=== PATIENT | male | born 1970 | race Caucasian/White ===

== ENCOUNTER 2022-09-17 00:21 | Inpatient (IN) ==
[2022-09-17] MEDS ORDERED: GLUCAGON,HUMAN RECOMBINANT 1 MG VIAL IV ONE ×5 (00:29→05:26)
[2022-09-17 00:48] LABS: POC Calcium, Ionized 1.01 (1.16-1.32); POC Creatinine 3.7 (0.6-1.2); POC Potassium 3.4 (3.3-5.1)
[2022-09-17] MEDS ORDERED: ONDANSETRON 4 MG/2 ML VIAL IV ONE (00:49)
[2022-09-17] MEDS ORDERED: 0.9 % SODIUM CHLORIDE 1,000 ML IV ONE ×3 (00:49→03:43)
--- NOTE | 2022-09-17 00:54 | Emergency Department Note ---
Weakness HPI General Chief complaint: Weakness Stated complaint: leg numbness, not feeling well x 1 month Time Seen by Provider: 09/17/22 00:22 Source: patient and EMS Mode of arrival: EMS Limitations: no limitations History of Present Illness HPI Narrative: Narrative: Patient presents to the ED via EMS with complaints of weakness going on for over a month. States he feels rundown. His head chills, body aches, extremity weakness. He does have peripheral neuropathy and diabetes. EMS states that his blood sugar was 50 in the field. He does use insulin. Patient reports nausea, vomiting and diarrhea. States his diarrhea is loose. He states he has been on antibiotics for months for pneumonia. Denies hematemesis, melena, medic easier, dysuria, hematuria urinary frequency, cardiac chest pain, shortness of breath. Patient denies any other alleviating or aggravating factors. Related Data Home Medications Medication Instructions Recorded Confirmed omeprazole 20 mg capsule,delayed 40 mg PO ACB 02/19/16 09/17/22 release glipizide 10 mg tablet, extended 10 mg PO BID 08/20/18 09/17/22 release 24 hr metoprolol succinate 50 mg 50 mg PO DAILY 08/20/18 09/17/22 tablet,extended release 24 hr furosemide 40 mg tablet (Lasix) 40 mg PO QAM 03/14/19 09/17/22 hydrocodone 7.5 mg-acetaminophen 1 tab PO TID PRN Pain 03/14/19 01/18/22 325 mg tablet lisinopril 10 mg tablet 20 mg PO QDAY 03/14/19 01/18/22 duloxetine 60 mg capsule,delayed 120 mg PO DAILY 07/04/20 09/17/22 release insulin degludec 100 unit/mL 40 unit subcut QPM 07/28/20 01/18/22 subcutaneous solution (Tresiba U-100 Insulin) insulin human U-100 NPH-regulr 10 unit subcut TID 07/28/20 01/18/22 70-30 mix 100 unit/mL subcutaneous susp (Humulin 70/30 U-100 Insulin) Ozempic 50 mg WEEKLY 01/18/22 09/17/22 allopurinol 100 mg tablet 100 mg PO DAILY 01/18/22 09/17/22 insulin degludec 100 unit/mL 1 unit subcut DAILY 01/18/22 01/18/22 subcutaneous solution (Tresiba U-100 Insulin) ondansetron HCl 4 mg tablet 4 mg PO Q6H PRN nausea and vomiting 09/17/22 09/17/22 Previous Rx's Medication Instructions Recorded probenecid 500 mg tablet 500 mg PO BID #60 tabs 04/05/16 azithromycin 250 mg tablet See Rx Instructions PO .COMPLEX #6 08/30/22 tabs Allergies Allergy/AdvReac Type Severity Reaction Status Date / Time cephalexin [From Keflex] Allergy Intermediate Hives Verified 09/17/22 00:27 gabapentin Allergy Unknown UNKNOWN Verified 09/17/22 00:27 Penicillins Allergy Anaphylaxis Verified 09/17/22 00:27 pregabalin [From Lyrica] Allergy Rash Verified 09/17/22 00:27 Sulfa (Sulfonamide Allergy Rash Verified 09/17/22 00:27 Antibiotics) Review of Systems ROS ROS Narrative: Narrative: All systems ED: reviewed and negative except as stated. PFSH Narrative Patient History Narrative: Narrative: Medical/Surgical/Family History All Active Problems (Updated 09/17/22 @ 05:21 by Davis Klein DO) Abdominal pain (Acute) Ileus (Acute) COVID-19 virus infection (Acute) Hypoglycemia (Acute) Sepsis (Acute) Diarrhea (Acute) Pneumonia involving left lung (Acute) Type 2 diabetes mellitus with diabetic mononeuropathy (Acute) Radiculopathy of lumbar region (Acute) Chronic intractable pain (Acute) Type 2 diabetes mellitus with peripheral neuropathy (Chronic) Vitamin B12 deficiency (Chronic) Mixed hyperlipidemia (Chronic) Edema (Chronic) Joint pain (Chronic) Hypertensive heart disease with congestive heart failure (Chronic) GERD (gastroesophageal reflux disease) (Chronic) Diastolic heart failure (Chronic) Anemia (Chronic) Obesity (Chronic) Dizziness (Chronic) Hypertension (Chronic) Peripheral neuropathy (Chronic) Diabetes mellitus, type II (Chronic) Syncope (Chronic) SOB (shortness of breath) (Chronic) Palpitation (Chronic) Sleep apnea (Chronic) Chest pain (Chronic) Acute CHF (congestive heart failure) (Chronic) Diabetes mellitus type 2, uncontrolled, with complications (Chronic) Hypertension, essential, benign (Chronic) EMERY (obstructive sleep apnea) (Chronic) Morbid (severe) obesity due to excess calories (Chronic) Cellulitis (Chronic) Pneumonia (Chronic) Elevated rheumatoid factor (Chronic) Elevated C-reactive protein (Chronic) 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) Gout (Chronic) Pain in both knees (Chronic) Elevated erythrocyte sedimentation rate (Chronic) Paresthesia of both feet (Chronic) Hernia (Chronic) Arthritis (Chronic) Bronchitis (Chronic) Medical History Anemia Arthritis Bronchitis Chest pain Chronic intractable pain Diabetes mellitus, type II Diastolic heart failure Dizziness Edema Elevated C-reactive protein Elevated erythrocyte sedimentation rate Elevated rheumatoid factor GERD (gastroesophageal reflux disease) Gout Hernia Hypertension Hypertensive heart disease with congestive heart failure Joint pain shelter current use of therapeutic drug Mixed hyperlipidemia Obesity Palpitation Paresthesia of both feet Peripheral neuropathy Radiculopathy of lumbar region Sleep apnea SOB (shortness of breath) Syncope Type 2 diabetes mellitus with diabetic mononeuropathy Type 2 diabetes mellitus with peripheral neuropathy Vitamin B12 deficiency Surgical History History of adenoidectomy (~2005) History of carpal tunnel release (~2016) right 2017 History of tonsillectomy and adenoidectomy History of tympanostomy (~2005) Hx of appendectomy when he was a child Hx of hernia repair 2002, 2015 Family History Mother , age 68 Arthritis Heart disease CHF (congestive heart failure) Rheumatoid arthritis Blood clotting disorder Lupus Father Diabetes Hypertension Neuropathy Brother Diabetes Social History Smoking Status: Smokeless tobacco Alcohol Intake Frequency: does not drink Substance Use: does not use Exam Narrative Narrative: Narrative: General Limitations: no limitations General appearance: Present obese ENT ENT: Present normal oropharynx and mucous membranes dry Respiratory Respiratory: Present normal lung sounds bilaterally; Absent respiratory distress Cardiovascular Cardiovascular: Present regular rate and normal rhythm Adbominal Abdominal: Present soft; Absent tenderness Back Back: Absent CVA tenderness (R) or CVA tenderness (L) Neurological Neurological: Present alert and oriented X3 Psychiatric Psychiatric: Present normal affect and normal mood Skin Skin: Present warm (WNL) and intact Course Course Course Narrative: Patient was evaluated for generalized weakness. When patient arrived via EMS his blood sugar was still on less than 70. He was given IV glucagon. His lactic acid was found to be elevated and his renal function was compromised to just the dehydration. Patient was aggressively given IV fluid. He had to balance patient's blood sugar with IV fluid. He had several rounds of IV glucagon to maintain blood sugar greater than 71 given him fluids to rehydrate him. Is also hypotensive with also necessitated IV fluids. Unfortunate patient blood pressure did not respond to IV fluids and he was placed on Levophed. Stool sample was obtained and it was negative for C. difficile patient was given some Imodium as he had 5 diarrhea bowel movements while he was here in the ED. He was given IV Zofran for his nausea and vomiting which subsided after administration of Zofran. Patient was hypotensive and tachycardic and his chest x-ray suggested pneumonia so he does meet sepsis criteria. Blood cultures were obtained and patient was given levofloxacin and vancomycin IV. Patient tested positive for COVID-19 and this could be playing a role in his pneumonia as his white cell count is normal. Patient will require hospitalization as he is requiring Levophed to maintain adequate blood pressure and MAP. Unfortunately do not have any beds at our facility so we are currently trying to find an accepting facility. It is proving difficult as it is actively [facility] and we will not be able to fly patient. Patient understand that he will need to be transferred out. Patient will be signed out to Dr. Olivares pending and excepting facility to determine final disposition. Reevaluation(s) Reevaluation #1: Patient reji hemodynamic stable. No new complaints at this time. Time: 01:30 Vital Signs Vital signs: Vital Signs Temperature 98.0 F 09/17/22 00:21 Pulse Rate 78 09/17/22 00:21 Respiratory Rate 28 H 09/17/22 00:21 Blood Pressure 80/55 09/17/22 00:21 Pulse Oximetry (%) 95 09/17/22 00:21 Oxygen Delivery Method 09/17/22 00:21 Temperature 98.0 F 09/17/22 00:21 Pulse Rate 82 09/17/22 06:01 Respiratory Rate 18 09/17/22 06:31 Blood Pressure 106/51 09/17/22 06:31 Pulse Oximetry (%) 100 09/17/22 06:31 Oxygen Delivery Method 09/17/22 01:51 Oxygen Flow Rate (L/min) 2 09/17/22 01:51 MDM MDM Narrative Medical decision making narrative: Narrative: Differential Diagnosis Differential Diagnosis: Hypoglycemia, dehydration, viral illness, UTI, C. difficile Medical Records Medical records reviewed: Yes I reviewed the patient's medical records. Lab Data Lab results reviewed: Yes I reviewed the patient's lab results. Result diagrams: 09/17/22 00:39 Labs: Lab Results 09/17/22 09/17/22 09/17/22 Range/Units 00:29 00:39 00:39 WBC 8.9 (4.5-11.0) K/mcL RBC 3.95 L (4.63-6.08) M/mcL Hgb 11.4 L (13.7-17.5) g/dL Hct 35.3 L (40.1-51.0) % POC Hct (41-55) MCV 89.4 (80.0-100.0) fL MCH 28.9 (26.0-34.0) pg MCHC 32.3 (31.0-36.0) g/dL RDW 16.3 H (11.5-14.5) % Plt Count 344 (140-440) K/mcL MPV 10.0 (8.8-12.5) fL Immature Gran % (Auto) 0.6 H (0.0-0.5) % Neut % (Auto) 50.4 (38.0-78.0) % Lymph % (Auto) 29.7 (15.5-49.0) % [place] % (Auto) 18.6 H (1.0-12.0) % Eos % (Auto) 0.1 (0.0-7.0) % Baso % (Auto) 0.6 (0.0-2.0) % Lymph # (Auto) 2.64 (1.50-4.80) K/mcL [place] # (Auto) 1.65 H (0.10-0.90) K/mcL Eos # (Auto) 0.01 (0.00-0.70) K/mcL Baso # (Auto) 0.05 (0.00-0.30) K/mcL Immature Gran # 0.05 (0.00-0.05) K/mcl Absolute Neutrophils 4.48 (1.80-8.00) K/mcL POC VBG pH (7.32-7.42) POC VBG pCO2 at Temp (41-51) POC VBG pO2 (25-40) POC VBG HCO3 (24-28) POC VBG Total CO2 (25-29) POC Venous O2 Sat (40-70) POC VBG Base Excess (-2-2) VBG Lactic Acid (0.5-2) POC Sodium (133-145) POC Potassium (3.3-5.1) POC Chloride (96-108) POC Total CO2 (22-30) POC BUN (6-20) POC Creatinine (0.6-1.2) POC Glucose (70-105) POC WB Ioniz Calcium (1.16-1.32) Total Bilirubin 0.4 (0.1-1.0) mg/dL Direct Bilirubin 0.2 (<0.3) mg/dL AST 89 H (<40) U/L ALT 38 (<40) U/L Alkaline Phosphatase 150 H (39-117) U/L Ammonia 32 (16-60) umol/L NT-Pro-B Natriuret Pep 1518.0 H (<125.0) pg/mL Total Protein 6.4 (5.9-8.4) gm/dL Albumin 3.1 L (3.2-5.2) gm/dL Globulin 3.3 (2.2-3.7) gm/dL Procalcitonin (<0.10) ng/mL 09/17/22 09/17/22 09/17/22 Range/Units 00:45 01:02 04:00 WBC (4.5-11.0) K/mcL RBC (4.63-6.08) M/mcL Hgb (13.7-17.5) g/dL Hct (40.1-51.0) % POC Hct 36.0 L (41-55) MCV (80.0-100.0) fL MCH (26.0-34.0) pg MCHC (31.0-36.0) g/dL RDW (11.5-14.5) % Plt Count (140-440) K/mcL MPV (8.8-12.5) fL Immature Gran % (Auto) (0.0-0.5) % Neut % (Auto) (38.0-78.0) % Lymph % (Auto) (15.5-49.0) % [place] % (Auto) (1.0-12.0) % Eos % (Auto) (0.0-7.0) % Baso % (Auto) (0.0-2.0) % Lymph # (Auto) (1.50-4.80) K/mcL [place] # (Auto) (0.10-0.90) K/mcL Eos # (Auto) (0.00-0.70) K/mcL Baso # (Auto) (0.00-0.30) K/mcL Immature Gran # (0.00-0.05) K/mcl Absolute Neutrophils (1.80-8.00) K/mcL POC VBG pH 7.34 (7.32-7.42) POC VBG pCO2 at Temp 36.5 L (41-51) POC VBG pO2 72 H (25-40) POC VBG HCO3 19.9 L (24-28) POC VBG Total CO2 21.0 L (25-29) POC Venous O2 Sat 93.0 H (40-70) POC VBG Base Excess -6.0 L (-2-2) VBG Lactic Acid 3.4 H (0.5-2) POC Sodium 131 L (133-145) POC Potassium 3.4 (3.3-5.1) POC Chloride 96 (96-108) POC Total CO2 21.0 L (22-30) POC BUN 41 H (6-20) POC Creatinine 3.7 H (0.6-1.2) POC Glucose 46 L (70-105) POC WB Ioniz Calcium 1.01 L (1.16-1.32) Total Bilirubin (0.1-1.0) mg/dL Direct Bilirubin (<0.3) mg/dL AST (<40) U/L ALT (<40) U/L Alkaline Phosphatase (39-117) U/L Ammonia (16-60) umol/L NT-Pro-B Natriuret Pep (<125.0) pg/mL Total Protein (5.9-8.4) gm/dL Albumin (3.2-5.2) gm/dL Globulin (2.2-3.7) gm/dL Procalcitonin 1.64 H (<0.10) ng/mL 09/17/22 Range/Units 04:05 WBC (4.5-11.0) K/mcL RBC (4.63-6.08) M/mcL Hgb (13.7-17.5) g/dL Hct (40.1-51.0) % POC Hct (41-55) MCV (80.0-100.0) fL MCH (26.0-34.0) pg MCHC (31.0-36.0) g/dL RDW (11.5-14.5) % Plt Count (140-440) K/mcL MPV (8.8-12.5) fL Immature Gran % (Auto) (0.0-0.5) % Neut % (Auto) (38.0-78.0) % Lymph % (Auto) (15.5-49.0) % [place] % (Auto) (1.0-12.0) % Eos % (Auto) (0.0-7.0) % Baso % (Auto) (0.0-2.0) % Lymph # (Auto) (1.50-4.80) K/mcL [place] # (Auto) (0.10-0.90) K/mcL Eos # (Auto) (0.00-0.70) K/mcL Baso # (Auto) (0.00-0.30) K/mcL Immature Gran # (0.00-0.05) K/mcl Absolute Neutrophils (1.80-8.00) K/mcL POC VBG pH 7.28 L (7.32-7.42) POC VBG pCO2 at Temp 44.7 (41-51) POC VBG pO2 32 (25-40) POC VBG HCO3 20.9 L (24-28) POC VBG Total CO2 22.0 L (25-29) POC Venous O2 Sat 54.0 (40-70) POC VBG Base Excess -6.0 L (-2-2) VBG Lactic Acid 2.8 H (0.5-2) POC Sodium (133-145) POC Potassium (3.3-5.1) POC Chloride (96-108) POC Total CO2 (22-30) POC BUN (6-20) POC Creatinine (0.6-1.2) POC Glucose (70-105) POC WB Ioniz Calcium (1.16-1.32) Total Bilirubin (0.1-1.0) mg/dL Direct Bilirubin (<0.3) mg/dL AST (<40) U/L ALT (<40) U/L Alkaline Phosphatase (39-117) U/L Ammonia (16-60) umol/L NT-Pro-B Natriuret Pep (<125.0) pg/mL Total Protein (5.9-8.4) gm/dL Albumin (3.2-5.2) gm/dL Globulin (2.2-3.7) gm/dL Procalcitonin (<0.10) ng/mL ED POC Tests ED POC Tests: MARY - Influenza A Negative MARY - Influenza B Negative MARY - SARS Antigen Positive Core Measures AMI Core Measures Followed: Yes Discharge Plan Patient/Caregiver Discharge Instructions Pt seen by ANIMAL SERVICES OFFICER/PA only: No Clinical Impression: COVID-19 virus infection, Hypoglycemia Sepsis Qualifiers: Sepsis type: sepsis due to unspecified organism Sepsis acute organ dysfunction status: with acute organ dysfunction Severe sepsis acute organ dysfunction type: acute renal failure Acute renal failure type: unspecified Severe sepsis shock status: with septic shock Qualified Code(s): A41.9 - Sepsis, unspecified organism Diarrhea Qualifiers: Diarrhea type: unspecified type Qualified Code(s): R19.7 - Diarrhea, unspecified Pneumonia involving left lung Qualifiers: Pneumonia type: due to unspecified organism Lung location: unspecified part of lung Qualified Code(s): J18.9 - Pneumonia, unspecified organism Patient Disposition: Still a Patient Condition: Fair Follow up with: Mary Cruz ARNP [Primary Care Provider] - Prescriptions: No Action furosemide [Lasix] 40 mg tablet 40 mg PO QAM lisinopril 10 mg tablet 20 mg PO QDAY hydrocodone-acetaminophen 7.5-325 mg tablet 1 tab PO TID PRN (Reason: Pain) probenecid 500 mg tablet 500 mg PO BID Qty: 60 2RF omeprazole 20 MG capsule 40 mg PO ACB metoprolol succinate 50 MG tablet extended release 24 hr 50 mg PO DAILY glipizide 10 MG tablet extended release 24hr 10 mg PO BID duloxetine 60 mg Capsule,Delayed Release(Dr/Ec) 120 mg PO DAILY Humulin 70/30 U-100 Insulin 100 unit/mL (70-30) Suspension 10 unit SUBCUT TID Tresiba U-100 Insulin 100 unit/mL Solution 40 unit SUBCUT QPM allopurinol 100 mg tablet 100 mg PO DAILY Label Comments: TAKE 1 TABLET BY MOUTH ONCE DAILY Ozempic 50 mg WEEKLY Tresiba U-100 Insulin 100 unit/mL Solution 1 unit SUBCUT DAILY azithromycin 250 mg tablet See Rx Instructions .ROUTE .COMPLEX Qty: 6 0RF Rx Instructions: For 250 mg dose pack: take 500 mg today (day 1), then 250 mg for 4 days (days 2-5) ondansetron HCl [Zofran] 4 mg tablet 4 mg PO Q6H PRN (Reason: nausea and vomiting)
[2022-09-17 01:30] LABS: Basophils # (Auto) 0.05 K/mcL (0.00-0.30); Basophils % (Auto) 0.6 % (0.0-2.0); Eosinophils # (Auto) 0.01 K/mcL (0.00-0.70); Eosinophils % (Auto) 0.1 % (0.0-7.0); Hematocrit 35.3 % (40.1-51.0); Hemoglobin 11.4 g/dL (13.7-17.5); Lymphocytes # (Auto) 2.64 K/mcL (1.50-4.80); Lymphocytes % (Auto) 29.7 % (15.5-49.0); Mean Cell Volume 89.4 fL (80.0-100.0); Mean Corpuscular HGB Conc 32.3 g/dL (31.0-36.0); Monocytes # (Auto) 1.65 K/mcL (0.10-0.90); Monocytes % (Auto) 18.6 % (1.0-12.0); Neutrophils % (Auto) 50.4 % (38.0-78.0); Platelet Count 344 K/mcL (140-440); RBC 3.95 M/mcL (4.63-6.08); Red Cell Distribution Width 16.3 % (11.5-14.5); WBC 8.9 K/mcL (4.5-11.0)
[2022-09-17 01:44] LABS: Albumin 3.1 gm/dL (3.2-5.2); Bilirubin,Direct 0.2 mg/dL (<0.3); Bilirubin,Total 0.4 mg/dL (0.1-1.0); Globulin 3.3 gm/dL (2.2-3.7)
[2022-09-17] MEDS ORDERED: LOPERAMIDE 2 MG CAPSULE PO ONE (04:13)
--- NOTE | 2022-09-17 05:06 | XRay Report ---
CLINICAL INFORMATION: Dyspnea COMPARISON: 09/07/2022 TECHNIQUE: Portable FINDINGS: Moderate cardiomegaly is unchanged. Upper lobe pulmonary vessels are mildly distended compared to the previous exam. Mediastinum is normal. Moderate patchy left basilar infiltrate noted. There is a small patchy right basilar infiltrate. Small bilateral pleural effusions appreciated. IMPRESSION: Moderate left and small patchy right basilar infiltrate Mild CHF Interpreted and Authenticated by: James Allen 09/17/22
[2022-09-17] MEDS ORDERED: VANCOMYCIN 1,500 MG in 0.9 % SODIUM CHLORIDE 500 ML IV ONE (05:12)
[2022-09-17] MEDS ORDERED: NOREPINEPHRINE BITARTRATE 16 MG in 0.9 % SODIUM CHLORIDE 234 ML IV SCH (05:15)
[2022-09-17] MEDS ORDERED: 0.9 % SODIUM CHLORIDE 250 ML IV SCH (05:15)
[2022-09-17] MEDS ORDERED: LEVOFLOXACIN 750 MG/150 ML BAG IV ONE (05:21)
[2022-09-17] MEDS ORDERED: GLUCAGON,HUMAN RECOMBINANT 1 MG VIAL ONE (05:37)
[2022-09-17] MEDS ORDERED: DEXTROSE 10 % IN WATER 1,000 ML IV SCH ×2 (07:45→16:00)
[2022-09-17] MEDS ORDERED: ACETAMINOPHEN 325 MG TABLET PO PRN (14:33)
[2022-09-17] MEDS ORDERED: DEXTROSE 31 GM ORAL.SUSP PO PRN (14:33)
[2022-09-17] MEDS ORDERED: DEXTROSE 50% 50 ML VIAL IV PRN (14:33)
[2022-09-17] MEDS ORDERED: SENNOSIDES 1 TABLET PO PRN (14:33)
[2022-09-17] MEDS ORDERED: ONDANSETRON 4 MG/2 ML VIAL IV PRN (14:33)
[2022-09-17] MEDS ORDERED: ALBUMIN HUMAN 25 GM/100 ML BAG IV ONE (14:33)
--- NOTE | 2022-09-17 14:45 | Internal Med History&Physical ---
HPI History of Present Illness Patient information: Note initiated : 09/17/22 at 2:40 pm Patient: Zachary Guerra a 52 y/o M admitted progressive shortness of breath and cough for 2 weeks Chief complaint: Shortness of breath, cough History of present illness: Mr. Guerra is a 52 year old male with past medical history significant for diabetes mellitus, HTN, congestive heart failure unknown EF, morbid obesity with BMI 47 presented to emergency room with complaint of difficulty breathing cough with some sputum which progressively got worse for the past 2 weeks. Patient denies fever chills nausea vomiting. He has uncontrolled diabetes. Sometime he gave himself insulin without checking his blood sugar. Patient also complained of numbness bilateral lower extremity. He has generalized weakness and fatigue. Patient is vaccinated for COVID-19 virus with 2 vaccine. He did not receive his booster. He is vaccinated for influenza. In the emergency room patient found to be in septic shock with hypotension and elevated lactic acid. He was given IV fluid and started on Levophed as well as antibiotic. Patient was also persistently hypoglycemic and has to be started on D10W drip. At the time of my evaluation patient is awake alert oriented x3. He is a still hypotensive and on Levophed drip. His is at the bedside. Patient has shortness of breath and cough. No chest pain. He denies abdominal pain nausea vomiting dysuria or diarrhea. Review of Systems Review of systems: Except as documented all systems reviewed and negative PFSH PFSH All Active Problems Abdominal pain (Acute) Ileus (Acute) COVID-19 virus infection (Acute) Hypoglycemia (Acute) Sepsis (Acute) Diarrhea (Acute) Pneumonia involving left lung (Acute) Type 2 diabetes mellitus with diabetic mononeuropathy (Acute) Radiculopathy of lumbar region (Acute) Chronic intractable pain (Acute) Type 2 diabetes mellitus with peripheral neuropathy (Chronic) Vitamin B12 deficiency (Chronic) Mixed hyperlipidemia (Chronic) Edema (Chronic) Joint pain (Chronic) Hypertensive heart disease with congestive heart failure (Chronic) GERD (gastroesophageal reflux disease) (Chronic) Diastolic heart failure (Chronic) Anemia (Chronic) Obesity (Chronic) Dizziness (Chronic) Hypertension (Chronic) Peripheral neuropathy (Chronic) Diabetes mellitus, type II (Chronic) Syncope (Chronic) SOB (shortness of breath) (Chronic) Palpitation (Chronic) Sleep apnea (Chronic) Chest pain (Chronic) Acute CHF (congestive heart failure) (Chronic) Diabetes mellitus type 2, uncontrolled, with complications (Chronic) Hypertension, essential, benign (Chronic) EMERY (obstructive sleep apnea) (Chronic) Morbid (severe) obesity due to excess calories (Chronic) Cellulitis (Chronic) Pneumonia (Chronic) Elevated rheumatoid factor (Chronic) Elevated C-reactive protein (Chronic) 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) Gout (Chronic) Pain in both knees (Chronic) Elevated erythrocyte sedimentation rate (Chronic) Paresthesia of both feet (Chronic) Hernia (Chronic) Arthritis (Chronic) Bronchitis (Chronic) Medical History Anemia Arthritis Bronchitis Chest pain Chronic intractable pain Diabetes mellitus, type II Diastolic heart failure Dizziness Edema Elevated C-reactive protein Elevated erythrocyte sedimentation rate Elevated rheumatoid factor GERD (gastroesophageal reflux disease) Gout Hernia Hypertension Hypertensive heart disease with congestive heart failure Joint pain 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 Mixed hyperlipidemia Obesity Palpitation Paresthesia of both feet Peripheral neuropathy Radiculopathy of lumbar region Sleep apnea SOB (shortness of breath) Syncope Type 2 diabetes mellitus with diabetic mononeuropathy Type 2 diabetes mellitus with peripheral neuropathy Vitamin B12 deficiency Surgical History History of adenoidectomy (~2005) History of carpal tunnel release (~2017) right 2017 History of tonsillectomy and adenoidectomy History of tympanostomy (~2005) Hx of appendectomy when he was a child Hx of hernia repair 2002, 2015 Family History Mother , age 68 Arthritis Heart disease CHF (congestive heart failure) Rheumatoid arthritis Blood clotting disorder Lupus Father Diabetes Hypertension Neuropathy Brother Diabetes Social History household members: significant other marital status: other details: engaged occupational status: employed and disabled occupational exposures/hazards: No smoking status: Smokeless tobacco alcohol intake frequency: does not drink substance use type: does not use MEDS/ALLERGIES Home Medications and Allergies Home Medications Medication Instructions Recorded Confirmed Type omeprazole 20 mg capsule,delayed 40 mg PO ACB 02/19/16 09/17/22 History release probenecid 500 mg tablet 500 mg PO BID #60 tabs 04/05/16 09/17/22 Rx glipizide 10 mg tablet, extended 10 mg PO BID 08/20/18 09/17/22 History release 24 hr metoprolol succinate 50 mg 50 mg PO DAILY 08/20/18 09/17/22 History tablet,extended release 24 hr furosemide 40 mg tablet (Lasix) 40 mg PO QAM 03/14/19 09/17/22 History hydrocodone 7.5 mg-acetaminophen 1 tab PO TID PRN Pain 03/14/19 01/18/22 History 325 mg tablet lisinopril 10 mg tablet 20 mg PO QDAY 03/14/19 01/18/22 History duloxetine 60 mg capsule,delayed 120 mg PO DAILY 07/04/20 09/17/22 History release insulin degludec 100 unit/mL 40 unit subcut QPM 07/28/20 01/18/22 History subcutaneous solution (Tresiba U-100 Insulin) insulin human U-100 NPH-regulr 10 unit subcut TID 07/28/20 01/18/22 History 70-30 mix 100 unit/mL subcutaneous susp (Humulin 70/30 U-100 Insulin) Ozempic 50 mg WEEKLY 01/18/22 09/17/22 History allopurinol 100 mg tablet 100 mg PO DAILY 01/18/22 09/17/22 History insulin degludec 100 unit/mL 1 unit subcut DAILY 01/18/22 01/18/22 History subcutaneous solution (Tresiba U-100 Insulin) azithromycin 250 mg tablet See Rx Instructions PO .COMPLEX #6 08/30/22 Rx tabs ondansetron HCl 4 mg tablet 4 mg PO Q6H PRN nausea and vomiting 09/17/22 09/17/22 History Allergies Allergy/AdvReac Type Severity Reaction Status Date / Time Penicillins Allergy Severe Anaphylaxis Verified 09/17/22 14:43 cephalexin [From Keflex] Allergy Mild Hives Verified 09/17/22 14:43 pregabalin [From Lyrica] Allergy Mild Rash Verified 09/17/22 14:43 Sulfa (Sulfonamide Allergy Mild Rash Verified 09/17/22 14:43 Antibiotics) gabapentin Allergy Unknown UNKNOWN Verified 09/17/22 00:27 EXAM Constitutional Vitals: Temp Pulse Resp BP Pulse Ox O2 Del Method O2 Flow Rate 98.0 F 89 26 H 124/56 100 4 09/17/22 00:21 09/17/22 14:11 09/17/22 13:51 09/17/22 14:11 09/17/22 14:11 09/17/22 10:01 09/17/22 10:01 Exam: General: Well-developed, morbidly obese white male with BMI 47 in no significant distress. HEENT: Atraumatic, normocephalic.PERRLA, dry mucous membrane. Anicteric sclera Chest: No point tenderness.No point tenderness. Lungs: Clear to auscultation bilaterally. No rhonchi rales or crackles. No wheezing. No use of accessory muscle respiration. Cardiovascular: Regular rate and rhythm. S1 + S2, no murmur gallop rub. No JVD Extremities: 2+ bilateral lower extremity edema with chronic skin changes. No wound or ulcer. GI: Abdomen obese, soft, nontender, positive bowel sounds. No hepatosplenomegaly. No rebound tenderness. No CVA tenderness. Donaldson sign is negative : No Cano catheter. No bladder distention LOWER IN SUPERVISOR: Awake alert oriented x3. Cranial nerves II through XII 12 grossly intact. Motor, sensory intact. DTR 2+ upper lower extremity: Symmetric Skin:Dry. No rash. Lymph: No lymphadenopathy Psychiatric: Normal mood and affect DATA Data Completed and Pending Labs: Labs from last 24 hours 09/17/22 09/17/22 09/17/22 07:31 04:05 04:00 WBC RBC Hgb Hct POC Hct MCV MCH MCHC RDW Plt Count MPV Immature Gran % (Auto) Neut % (Auto) Lymph % (Auto) [place] % (Auto) Eos % (Auto) Baso % (Auto) Lymph # (Auto) [place] # (Auto) Eos # (Auto) Baso # (Auto) Immature Gran # Absolute Neutrophils POC VBG pH 7.28 L POC VBG pCO2 at Temp 44.7 POC VBG pO2 32 POC VBG HCO3 20.9 L POC VBG Total CO2 22.0 L POC Venous O2 Sat 54.0 POC VBG Base Excess -6.0 L VBG Lactic Acid 1.7 2.8 H POC Sodium POC Potassium POC Chloride POC Total CO2 POC BUN POC Creatinine POC Glucose POC WB Ioniz Calcium Total Bilirubin Direct Bilirubin AST ALT Alkaline Phosphatase Ammonia NT-Pro-B Natriuret Pep Total Protein Albumin Globulin Procalcitonin 1.64 H 09/17/22 09/17/22 09/17/22 01:02 00:45 00:39 WBC RBC Hgb Hct POC Hct 36.0 L MCV MCH MCHC RDW Plt Count MPV Immature Gran % (Auto) Neut % (Auto) Lymph % (Auto) [place] % (Auto) Eos % (Auto) Baso % (Auto) Lymph # (Auto) [place] # (Auto) Eos # (Auto) Baso # (Auto) Immature Gran # Absolute Neutrophils POC VBG pH 7.34 POC VBG pCO2 at Temp 36.5 L POC VBG pO2 72 H POC VBG HCO3 19.9 L POC VBG Total CO2 21.0 L POC Venous O2 Sat 93.0 H POC VBG Base Excess -6.0 L VBG Lactic Acid 3.4 H POC Sodium 131 L POC Potassium 3.4 POC Chloride 96 POC Total CO2 21.0 L POC BUN 41 H POC Creatinine 3.7 H POC Glucose 46 L POC WB Ioniz Calcium 1.01 L Total Bilirubin 0.4 Direct Bilirubin 0.2 AST 89 H ALT 38 Alkaline Phosphatase 150 H Ammonia NT-Pro-B Natriuret Pep 1518.0 H Total Protein 6.4 Albumin 3.1 L Globulin 3.3 Procalcitonin 09/17/22 09/17/22 00:39 00:29 WBC 8.9 RBC 3.95 L Hgb 11.4 L Hct 35.3 L POC Hct MCV 89.4 MCH 28.9 MCHC 32.3 RDW 16.3 H Plt Count 344 MPV 10.0 Immature Gran % (Auto) 0.6 H Neut % (Auto) 50.4 Lymph % (Auto) 29.7 [place] % (Auto) 18.6 H Eos % (Auto) 0.1 Baso % (Auto) 0.6 Lymph # (Auto) 2.64 [place] # (Auto) 1.65 H Eos # (Auto) 0.01 Baso # (Auto) 0.05 Immature Gran # 0.05 Absolute Neutrophils 4.48 POC VBG pH POC VBG pCO2 at Temp POC VBG pO2 POC VBG HCO3 POC VBG Total CO2 POC Venous O2 Sat POC VBG Base Excess VBG Lactic Acid POC Sodium POC Potassium POC Chloride POC Total CO2 POC BUN POC Creatinine POC Glucose POC WB Ioniz Calcium Total Bilirubin Direct Bilirubin AST ALT Alkaline Phosphatase Ammonia 32 NT-Pro-B Natriuret Pep Total Protein Albumin Globulin Procalcitonin Impressions Impressions: Chest x-ray: Moderate left and a small patchy right basilar infiltrate, mild pulmonary congestion/CHF A/P Sepsis Sepsis Identified: Yes Time Zero: 14 Narrative A/P Narrative: 52 years old male with DM II, HTN, neuropathy and morbid obesity with BMI 47, vaccinated with 2 doses of COVID 19-vaccine (no booster) presented to emergency room with complaint of shortness of breath cough for 2 weeks: #Septic shock due to community-acquired pneumonia/COVID-19 infection #Acute hypoxic respiratory failure due to CAP/COVID-19 infection #Community-acquired pneumonia -Admit to ICU. Continue gentle IV fluid. Continue Levophed drip and titrate to MAP greater than 65 -Continue IV levofloxacin (cephalosporin allergy) -Lactic acid trended down. Follow blood culture. Check a sputum gram stain and culture #COVID-19 pneumonia -Vaccinated with 2 doses and no booster of vaccine -Start dexamethasone 6 mg IV daily. Start remdesivir. -Check CRP. Follow CMP and CBC -COVID-19 isolation #Persistent hypoglycemia due to insulin -Hold all insulin and oral hypoglycemic agent -Continue gentle D10W and check blood sugar every hour -Use sliding scale insulin for higher blood sugar #Acute kidney injury with creatinine 3.7 -Baseline creatinine 1.0-month ago - Most likely ATN as a result of septic shock -Check UA. Continue gentle IV fluid. Follow renal panel and avoid nephrotoxic agent - Place cano catheter for strict I's / O's. If does not improve we will check renal ultrasound # Hx of CHF. Last Echo 01/2019 with Normal Echo and High EF - BNP 1518. Seems compensated at this time. Compensated if Low EF. - Since last Echo was 01/2019 I will order a new one. # DM II with hypoglycemia. Please see above #HTN: Hold blood pressure medication #Neuropathy/ Lower extremity diabetic mononeuropathy - S/p spinal cord stimulator with an excellent response to his lower extremity pain. # Hypokalemia. Will replace with PO kcl. #Morbid obesity with BMI 47 -Patient needs weight reduction program as outpatient. DVT PPX: Heparin 5000 twice daily Code Status : Full code Disposition: Inpatient Plan of care discussed with patient and and his Zachary and ICU staff. Time Spent With Patient Time: Total time spent is greater than 50% in coordination of care (as documented) at patient's floor/unit and/or counseling patient: Total time spent with greater than 50% in coordination of care (as documented) at patient's floor/unit and/or counseling patient:: Greater than 70 minutes Critical Care Time: Yes Total Critical Care Time: 70
[2022-09-17] MEDS: NOREPINEPHRINE BITARTRATE 8 MG in 0.9 % SODIUM CHLORIDE 242 ML IV SCH (14:50)
[2022-09-17] MEDS ORDERED: HYDROCODONE/APAP 7.5/325MG TABLET PO PRN (15:26)
[2022-09-17] MEDS ORDERED: ONDANSETRON 4 MG ODT TABLET SL PRN (15:30)
[2022-09-17] MEDS ORDERED: POTASSIUM CHLORIDE 20 MEQ TABLET PO ONE (16:00)
[2022-09-17] MEDS ORDERED: REMDESIVIR 200 MG in 0.9 % SODIUM CHLORIDE 250 ML IV ONE (16:00)
[2022-09-17] MEDS: LACTATED RINGERS 1,000 ML IV SCH (16:40)
[2022-09-17] MEDS: 0.9 % SODIUM CHLORIDE 250 ML IV SCH (16:41)
[2022-09-17] MEDS: INSULIN LISPRO 1 UNIT/0.01 ML UNIT SQ SCH ×2 (16:42→20:35)
[2022-09-17] MEDS: glipiZIDE 5 MG TAB.XL.24H PO SCH (16:42)
[2022-09-17 17:32] LABS: Hemoglobin A1C 6.3 % Hgb (4.0-6.0)
[2022-09-17 18:26] LABS: Appearance,Urine CLEAR (Clear); Bilirubin,Urine NEGATIVE (Negative); Color,Urine LT. YELLOW; Culture Indicated,Urine No; Glucose,Urine (UA) NEGATIVE (Negative); Ketones,Urine NEGATIVE (Negative); Leukocyte Esterase,Urine NEGATIVE /uL (Negative); Nitrate,Urine NEGATIVE (Negative); Protein,Urine TRACE mg/dL (Negative); Urine Blood SMALL ery/mcL (Negative); Urine RBC 0 /hpf (0-3); Urine Squamous Epithelial Cell 0 /hpf (0-4); Urine WBC 0 /hpf (0-4); Urobilinogen,Urine Normal
[2022-09-17] MEDS: DEXTROSE 10 % IN WATER 1,000 ML IV SCH (19:20)
[2022-09-17] MEDS: 0.9 % SODIUM CHLORIDE 10 ML SYRINGE IV SCH (20:35)
[2022-09-18] MEDS: LACTATED RINGERS 1,000 ML IV SCH (02:08)
[2022-09-18] MEDS: 0.9 % SODIUM CHLORIDE 250 ML IV SCH ×2 (04:40→16:09)
[2022-09-18] MEDS: 0.9 % SODIUM CHLORIDE 10 ML SYRINGE IV SCH ×3 (04:52→21:14)
[2022-09-18 07:06] LABS: Hematocrit 34.9 % (40.1-51.0); Mean Cell Volume 91.1 fL (80.0-100.0); Mean Corpuscular HGB Conc 31.5 g/dL (31.0-36.0); Mean Platelet Volume 9.8 fL (8.8-12.5); Platelet Count 272 K/mcL (140-440); RBC 3.83 M/mcL (4.63-6.08); Red Cell Distribution Width 16.4 % (11.5-14.5); WBC 5.6 K/mcL (4.5-11.0)
[2022-09-18] MEDS ORDERED: PANTOPRAZOLE 40 MG TABLET PO SCH (07:30)
[2022-09-18] MEDS: OMEPRAZOLE 20 MG CAPSULE PO SCH (07:51)
[2022-09-18] MEDS: glipiZIDE 5 MG TAB.XL.24H PO SCH ×2 (07:52→18:27)
[2022-09-18 08:06] LABS: Anisocytosis 1+ (None Seen); Band Neutrophils % 8 % (0-10); Lymphocytes % 36 % (15-49); Monocytes % (Manual) 12 % (1-12); Nucleated Red Blood Cells 2 % (0-0); Platelet Estimate DECREASED (Normal); RBC Morphology ABNORMAL (Normal); Segmented Neutrophils % 44 % (38-78)
[2022-09-18] MEDS: INSULIN LISPRO 1 UNIT/0.01 ML UNIT SQ SCH ×4 (08:11→21:12)
[2022-09-18] MEDS: NOREPINEPHRINE BITARTRATE 8 MG in 0.9 % SODIUM CHLORIDE 242 ML IV SCH ×2 (08:11→21:14)
[2022-09-18 08:19] LABS: ALT/SGPT 38 U/L (<40); AST/SGOT 85 U/L (<40); Alkaline Phosphatase 140 U/L (39-117); Bilirubin,Total 0.3 mg/dL (0.1-1.0); Blood Urea Nitrogen 43 mg/dL (6-20); Calcium 8.2 mg/dL (8.6-10.4); Carbon Dioxide 20 mmol/L (22-30); Chloride 101 mmol/L (96-108); Globulin 3.1 gm/dL (2.2-3.7); Glomerular Filtration Rate 45; Glucose 138 mg/dL (70-105)
[2022-09-18] MEDS ORDERED: LEVOFLOXACIN 750 MG/150 ML BAG IV SCH (09:00)
[2022-09-18] MEDS ORDERED: ENOXAPARIN 40 MG/0.4 ML SYRINGE SQ SCH (09:00)
[2022-09-18] MEDS ORDERED: INSULIN DEGLUDEC 100 UNIT SUB-Q SCH (09:00)
[2022-09-18] MEDS: DULoxetine 30 MG CAPSULE PO SCH (09:05)
[2022-09-18] MEDS: DEXAMETHASONE 10 MG/ML VIAL IV SCH (09:07)
[2022-09-18] MEDS: METOPROLOL SUCCINATE 50 MG TAB.XL.24H PO SCH (09:07)
[2022-09-18] MEDS: REMDESIVIR 100 MG in 0.9 % SODIUM CHLORIDE 250 ML IV SCH (09:07)
[2022-09-18] MEDS: guaiFENesin/DEXTROMETHORPHAN ORAL SOL PO PRN (13:03)
--- NOTE | 2022-09-18 13:42 | Internal Med Progress Note ---
SUBJECTIVE Subjective Patient information: Note initiated : 09/18/22 at 1:29 pm Patient: Zachary Guerra 52 y/o M admitted on 09/17/22 for SOB for 2 weeks and leg numbness, not feeling well x 1 month. Interval history: Patient is feeling much better today. He is on 2 L oxygen. His blood sugar still less than 160 despite eating and D10W at 30 cc/h. He denies chest pain shortness of breath nausea vomiting fever chills. Pertinent ROS: Except as documented all systems reviewed and negative Constitutional Vitals: Vital Signs Temp Pulse Resp BP Pulse Ox O2 Del Method O2 Flow Rate 99.0 F 87 25 H 111/61 94 2 09/18/22 11:09 09/18/22 11:09 09/18/22 11:09 09/18/22 11:00 09/18/22 11:09 09/18/22 08:00 09/18/22 08:00 Period Temp Pulse Resp BP Sys/Jackson Pulse Ox O2 Del Method O2 Flow Rate Last 24 Hr 97.6 F-99.8 F 81-98 14-38 65-154/41-84 91-100 Nasal Cannula-Nasal Cannula, Bubble Humidifier 1-2 Intake and Output 09/18/22 09/18/22 09/18/22 03:59 11:59 19:59 Intake Total 1444 1210 Output Total 1110 610 60 Balance 334 600 -60 Weight 153.995 kg 153.995 kg Patient Weight 09/19/22 03:59 Weight 153.995 kg General: Well-developed, morbidly obese white male with BMI 47 in no distress. HEENT: Atraumatic, normocephalic.PERRLA, dry mucous membrane. Anicteric sclera Chest: No point tenderness.No point tenderness. Lungs: Clear to auscultation bilaterally. No rhonchi rales or crackles. No wheezing. No use of accessory muscle respiration. Cardiovascular: Regular rate and rhythm. S1 + S2, no murmur gallop rub. No JVD Extremities: 2+ bilateral lower extremity edema with chronic skin changes. No wound or ulcer. GI: Abdomen obese, soft, nontender, positive bowel sounds. No he patosplenomegaly. No rebound tenderness. No CVA tenderness. Donaldson sign is negative ASSISTANT PROFESSOR: Awake alert oriented x3. Cranial nerves II through XII 12 grossly intact. Motor, sensory intact. DTR 2+ upper lower extremity: Symmetric Skin:Dry. No rash. Psychiatric: Normal mood and affect Intake & Output: Intake & Output 09/18/22 09/18/22 09/18/22 03:59 11:59 19:59 Intake Total 1444 1210 Output Total 1110 610 60 Balance 334 600 -60 Weight 153.995 kg 153.995 kg Intake: IV 984 650 Sodium Chloride 0.9% 250 ml @ 250 20 mls/hr IV .[id number] RONDA Rx#: [id number] Lactated Ringers 1,000 ml @ 100 947 mls/hr IV .Q10H RONDA Rx#: [id number] Levophed 8 mg In Sodium 37 Chloride 0.9% 242 ml @ 10 MCG/ MIN 18.75 mls/hr IV Q14H RONDA Rx #:[id number] Veklury 100 mg In Sodium 250 Chloride 0.9% 250 ml @ 500 mls/ hr IV Q24H RONDA Rx#:[id number] Oral 460 560 Output: Urine Catheter Amount 1110 500 60 Void Amount 110 Other: Meal Breakfast Lunch Percent of Meal Consumed 100% 100% Urine Appearance Clear Clear Clear Uretheral (Brower) Clear Clear Urine Color Yellow Yellow Yellow Uretheral (Brower) Bright Yellow Yellow OBJ DATA Labs CBC & Chem 7: 09/18/22 05:46 09/18/22 05:47 Labs: Abnormal Lab Results 09/18/22 09/18/22 09/17/22 05:47 05:46 17:05 RBC 3.83 L Hgb 11.0 L Hct 34.9 L POC Hct RDW 16.4 H Immature Gran % (Auto) [place] % (Auto) [place] # (Auto) Nucleated RBCs 2 H Platelet Estimate Decreased A RBC Morphology Abnormal A Anisocytosis 1+ A POC VBG pH POC VBG pCO2 at Temp POC VBG pO2 POC VBG HCO3 POC VBG Total CO2 POC Venous O2 Sat POC VBG Base Excess VBG Lactic Acid POC Sodium Carbon Dioxide 20 L POC Total CO2 POC BUN BUN 43 H Creatinine 1.7 H POC Creatinine Glucose 138 H POC Glucose Hemoglobin A1c Calcium 8.2 L POC WB Ioniz Calcium AST 85 H Alkaline Phosphatase 140 H C-Reactive Protein 10.30 H NT-Pro-B Natriuret Pep Albumin 3.0 L Procalcitonin Urine Protein Trace A Urine Occult Blood Small A 09/17/22 09/17/22 09/17/22 04:05 04:00 01:02 RBC Hgb Hct POC Hct RDW Immature Gran % (Auto) [place] % (Auto) Stephenson # (Auto) Nucleated RBCs Platelet Estimate RBC Morphology Anisocytosis POC VBG pH 7.28 L POC VBG pCO2 at Temp 36.5 L POC VBG pO2 72 H POC VBG HCO3 20.9 L 19.9 L POC VBG Total CO2 22.0 L 21.0 L POC Venous O2 Sat 93.0 H POC VBG Base Excess -6.0 L -6.0 L VBG Lactic Acid 2.8 H 3.4 H POC Sodium Carbon Dioxide POC Total CO2 POC BUN BUN Creatinine POC Creatinine Glucose POC Glucose Hemoglobin A1c Calcium POC WB Ioniz Calcium AST Alkaline Phosphatase C-Reactive Protein NT-Pro-B Natriuret Pep Albumin Procalcitonin 1.64 H Urine Protein Urine Occult Blood 09/17/22 09/17/22 09/17/22 00:45 00:39 00:39 RBC Hgb Hct POC Hct 36.0 L RDW Immature Gran % (Auto) [place] % (Auto) [place] # (Auto) Nucleated RBCs Platelet Estimate RBC Morphology Anisocytosis POC VBG pH POC VBG pCO2 at Temp POC VBG pO2 POC VBG HCO3 POC VBG Total CO2 POC Venous O2 Sat POC VBG Base Excess VBG Lactic Acid POC Sodium 131 L Carbon Dioxide POC Total CO2 21.0 L POC BUN 41 H BUN Creatinine POC Creatinine 3.7 H Glucose POC Glucose 46 L Hemoglobin A1c 6.3 H Calcium POC WB Ioniz Calcium 1.01 L AST 89 H Alkaline Phosphatase 150 H C-Reactive Protein NT-Pro-B Natriuret Pep 1518.0 H Albumin 3.1 L Procalcitonin Urine Protein Urine Occult Blood 09/17/22 00:39 RBC 3.95 L Hgb 11.4 L Hct 35.3 L POC Hct RDW 16.3 H Immature Gran % (Auto) 0.6 H [place] % (Auto) 18.6 H [place] # (Auto) 1.65 H Nucleated RBCs Platelet Estimate RBC Morphology Anisocytosis POC VBG pH POC VBG pCO2 at Temp POC VBG pO2 POC VBG HCO3 POC VBG Total CO2 POC Venous O2 Sat POC VBG Base Excess VBG Lactic Acid POC Sodium Carbon Dioxide POC Total CO2 POC BUN BUN Creatinine POC Creatinine Glucose POC Glucose Hemoglobin A1c Calcium POC WB Ioniz Calcium AST Alkaline Phosphatase C-Reactive Protein NT-Pro-B Natriuret Pep Albumin Procalcitonin Urine Protein Urine Occult Blood Meds: Medications Acetaminophen (Acetaminophen 325 Mg Tablet) 650 mg PO Q4-6HP PRN; Protocol PRN Reason: Per Pain Protocol/Fever > 101 Hydrocodone Bitart/Acetaminophen (Hydrocodone/Apap 7.5/325mg Tablet) 1 tab PO TIDP PRN PRN Reason: Pain Dexamethasone (Dexamethasone 10 Mg/Ml Vial) 6 mg IV DAILY [facility] Last Admin: 09/18/22 09:07 Dose: 6 mg Dextrose (Dextrose 50% 50 Ml Vial) 0 ml IV UD PRN PRN Reason: Per Sliding Scale Diagnostic Test (Pha) (Accu-Chek 1 Each Strip) 1 each FS Q2 [facility] Last Admin: 09/18/22 12:02 Dose: 1 each Duloxetine HCl (Duloxetine 30 Mg Capsule) 120 mg PO DAILY [facility] Last Admin: 09/18/22 09:05 Dose: 120 mg Enoxaparin Sodium (Enoxaparin 40 Mg/0.4 Ml Syringe) 40 mg SQ BID RONDA Glipizide (Glipizide 5 Mg Tab.Xl.24h) 10 mg PO BIDAC [facility] Last Admin: 09/18/22 07:52 Dose: 10 mg Glucose (Dextrose 31 Gm Oral.Susp) 15 gm PO PRN PRN PRN Reason: Hypoglycemia Guaifenesin (Guaifenesin/Dextromethorphan Oral Soheila) 10 ml PO Q4HP PRN PRN Reason: Cough Last Admin: 09/18/22 13:03 Dose: 10 ml Norepinephrine Bitartrate 8 mg (/ Sodium Chloride) 250 mls @ 18.75 mls/hr IV Q14H [facility]; Protocol Last Admin: 09/18/22 08:11 Dose: Not Given Sodium Chloride (Sodium Chloride 0.9%) 250 mls @ 20 mls/hr IV .[id number] [facility] Last Infusion: 09/18/22 11:33 Dose: Infused REMDESIVIR 100 mg/ Sodium (Chloride) 250 mls @ 500 mls/hr IV Q24H [facility] Stop: 09/21/22 09:29 Last Infusion: 09/18/22 10:18 Dose: Infused Dextrose (Dextrose 10%-Water Iv Solution) 1,000 mls @ 30 mls/hr IV .Q24H [facility] Last Admin: 09/17/22 19:20 Dose: Not Given Insulin Human Lispro (Insulin Lispro 1 Unit/0.01 Ml Unit) 0 unit SQ ACHS [facility]; Protocol Last Admin: 09/18/22 13:02 Dose: Not Given Levofloxacin (Levofloxacin 750 Mg Tablet) 750 mg PO DAILY [facility] Metoprolol Succinate (Metoprolol Succinate 50 Mg Tab.Xl.24h) 50 mg PO DAILY [facility] Last Admin: 09/18/22 09:07 Dose: 50 mg Omeprazole (Omeprazole 20 Mg Capsule) 40 mg PO ACB [facility] Last Admin: 09/18/22 07:51 Dose: 40 mg Ondansetron HCl (Ondansetron 4 Mg/2 Ml Vial) 4 mg IV Q4-6HP PRN; Protocol PRN Reason: Nausea And Vomiting Ondansetron HCl (Ondansetron 4 Mg Odt Tablet) 4 mg SL Q6HP PRN PRN Reason: Nausea And Vomiting Senna (Sennosides 1 Tablet) 2 tab PO HSP PRN PRN Reason: Constipation Sodium Chloride (0.9 % Sodium Chloride 10 Ml Syringe) 10 ml IV Q8 [facility] Last Admin: 09/18/22 13:03 Dose: 10 ml A/P Sepsis Sepsis Identified: Yes Time Zero: 0015 Narrative A/P Narrative: 52 years old male with DM II, HTN, neuropathy and morbid obesity with BMI 47, vaccinated with 2 doses of COVID 19-vaccine (no booster) presented to emergency room with complaint of shortness of breath cough for 2 weeks: #Septic shock due to community-acquired pneumonia/COVID-19 infection #Acute hypoxic respiratory failure due to CAP/COVID-19 infection #Community-acquired pneumonia -Cont ICU. Continue gentle IV fluid. Titrate and Dc Levophed drip -Continue IV levofloxacin (cephalosporin allergy) -Lactic acid trended 1.7. Follow blood culture. Pending sputum gram stain and culture #COVID-19 pneumonia -Vaccinated with 2 doses and no booster of vaccine -Cont Dexamethasone 6 mg IV daily. Cont Remdesivir. - CRP 10.3, Follow CMP and CBC -COVID-19 isolation #Persistent hypoglycemia due to insulin -Hold all insulin and oral hypoglycemic agent -Continue gentle D10W and check blood sugar every 2 hour -Use sliding scale insulin for higher blood sugar #Acute kidney injury with creatinine 3.7. Nonoliguric -Baseline creatinine 1.0-month ago - Most likely ATN as a result of septic shock -UA unremarkable. Continue gentle IV fluid. Follow renal panel and avoid nephrotoxic agent # Hx of CHF. Last Echo 01/2019 with Normal Echo and High EF - BNP 1518. Seems compensated at this time. Compensated if Low EF. - Since last Echo was 01/2019, pending echo # DM II with hypoglycemia. Please see above #HTN: Hold blood pressure medication #Neuropathy/ Lower extremity diabetic mononeuropathy - S/p spinal cord stimulator with an excellent response to his lower extremity pain. # Hypokalemia. Replace and follow BMP. #Morbid obesity with BMI 47 -Patient needs weight reduction program as outpatient. DVT PPX: Heparin 5000 twice daily Code Status : Full code Disposition: Inpatient. ICU Plan of care discussed with patient and and his Zachary and ICU staff. Time Spent With Patient Time: Total time spent is greater than 50% in coordination of care (as documented) at patient's floor/unit and/or counseling patient: Total time spent with greater than 50% in coordination of care (as documented) at patient's floor/unit and/or counseling patient:: 35 - 50 minutes Total Critical Care Time: 44
[2022-09-18] MEDS: DEXTROSE 10 % IN WATER 1,000 ML IV SCH ×2 (18:40→22:00)
[2022-09-18] MEDS: ENOXAPARIN 40 MG/0.4 ML SYRINGE SQ SCH (21:13)
[2022-09-19] MEDS: 0.9 % SODIUM CHLORIDE 250 ML IV SCH ×2 (05:04→16:38)
[2022-09-19] MEDS: 0.9 % SODIUM CHLORIDE 10 ML SYRINGE IV SCH ×3 (05:41→21:06)
[2022-09-19 07:11] LABS: Hematocrit 35.3 % (40.1-51.0); Hemoglobin 11.1 g/dL (13.7-17.5); Mean Cell Volume 90.3 fL (80.0-100.0); Mean Corpuscular HGB Conc 31.4 g/dL (31.0-36.0); Platelet Count 249 K/mcL (140-440); RBC 3.91 M/mcL (4.63-6.08); Red Cell Distribution Width 16.1 % (11.5-14.5); WBC 3.3 K/mcL (4.5-11.0)
[2022-09-19 07:44] LABS: Blood Urea Nitrogen 31 mg/dL (6-20); Carbon Dioxide 20 mmol/L (22-30); Chloride 102 mmol/L (96-108); Glomerular Filtration Rate 68; Glucose 189 mg/dL (70-105)
[2022-09-19] MEDS: OMEPRAZOLE 20 MG CAPSULE PO SCH (07:58)
[2022-09-19] MEDS: guaiFENesin/DEXTROMETHORPHAN ORAL SOL PO PRN (08:33)
[2022-09-19] MEDS: METOPROLOL SUCCINATE 50 MG TAB.XL.24H PO SCH (08:37)
[2022-09-19] MEDS: DULoxetine 30 MG CAPSULE PO SCH (08:37)
[2022-09-19] MEDS: LEVOFLOXACIN 750 MG TABLET PO SCH (08:37)
[2022-09-19] MEDS: ENOXAPARIN 40 MG/0.4 ML SYRINGE SQ SCH ×2 (08:37→21:06)
[2022-09-19] MEDS: DEXAMETHASONE 10 MG/ML VIAL IV SCH (08:38)
[2022-09-19] MEDS: REMDESIVIR 100 MG in 0.9 % SODIUM CHLORIDE 250 ML IV SCH (08:38)
[2022-09-19 09:09] LABS: Anisocytosis 1+ (None Seen); Band Neutrophils % 4 % (0-10); Lymphocytes % 31 % (15-49); Monocytes % (Manual) 15 % (1-12); Platelet Estimate NORMAL (Normal); RBC Morphology ABNORMAL (Normal); Segmented Neutrophils % 50 % (38-78)
[2022-09-19] MEDS: INSULIN LISPRO 1 UNIT/0.01 ML UNIT SQ SCH ×4 (10:14→21:06)
[2022-09-19] MEDS: glipiZIDE 5 MG TAB.XL.24H PO SCH (10:33)
--- NOTE | 2022-09-19 10:36 | Internal Med Progress Note ---
SUBJECTIVE Subjective Patient information: Note initiated : 09/19/22 at 10:35 am Patient: Zachary Guerra 52 y/o M admitted on 09/17/22 for leg numbness, not feeling well x 1 month. Interval history: Patient is comfortable feeling well. He complains of fullness of both ear. No pain or drainage. He is off Levophed. He is off D10W and blood sugars are around 200s. He is off oxygen during the day. He has no nausea vomiting chest pain shortness of breath fever chills. Pertinent ROS: Except as documented all systems reviewed and negative Constitutional Vitals: Vital Signs Temp Pulse Resp BP Pulse Ox O2 Del Method O2 Flow Rate 97.6 F 80 17 140/71 95 1 09/19/22 10:00 09/19/22 10:00 09/19/22 10:00 09/19/22 10:00 09/19/22 10:00 09/19/22 09:14 09/19/22 09:14 Period Temp Pulse Resp BP Sys/Jackson Pulse Ox O2 Del Method O2 Flow Rate Last 24 Hr 97.2 F-99.2 F 75-97 15-26 90-170/48-122 93-99 Nasal Cannula- Nasal Cannula 1-2 Intake and Output 09/18/22 09/19/22 09/19/22 19:59 03:59 11:59 Intake Total 2421 600 1038 Output Total 870 1500 920 Balance 1551 -900 118 Weight 153.995 kg 154.817 kg Intake & Output: Intake & Output 09/18/22 09/19/22 09/19/22 19:59 03:59 11:59 Intake Total 2421 600 1038 Output Total 870 1500 920 Balance 1551 -900 118 Weight 153.995 kg 154.817 kg Intake: IV 1701 558 Dextrose 10%-Water IV Solution 701 308 1,000 ml @ 50 mls/hr IV .Q20H RONDA Rx#:[id number] Lactated Ringers 1,000 ml @ 100 1000 mls/hr IV .Q10H RONDA Rx#: [id number] Levophed 8 mg In Sodium 0 Chloride 0.9% 242 ml @ 10 MCG/ MIN 18.75 mls/hr IV Q14H RONDA Rx #:[id number] Veklury 100 mg In Sodium 250 Chloride 0.9% 250 ml @ 500 mls/ hr IV Q24H [facility] Rx#:[id number] Oral 720 600 480 Output: Urine Catheter Amount 870 1500 920 Other: Meal Dinner Breakfast Percent of Meal Consumed 100% 100% Urine Appearance Clear Clear Clear Uretheral (Brower) Clear Clear Urine Color Pale Yellow Pale Uretheral (Brower) Yellow Yellow Urine Odor Normal Strong Stool Size Small Stool Consistency Soft # Bowel Movements 1 General: Well-developed, morbidly obese white male with BMI 47 in no distress. HEENT: Atraumatic, normocephalic.PERRLA, dry mucous membrane. Anicteric sclera Ear exam. Mild inflammatory changes in right eustachian tube. I believe there is perforated right tympanic membrane. Left side no evidence of inflammation Chest: No point tenderness.No point tenderness. Lungs: Clear to auscultation bilaterally. No rhonchi rales or crackles. No w heezing. No use of accessory muscle respiration. Cardiovascular: Regular rate and rhythm. S1 + S2, no murmur gallop rub. No JVD Extremities: 2+ bilateral lower extremity edema with chronic skin changes. No wound or ulcer. GI: Abdomen obese, soft, nontender, positive bowel sounds. No hepatospleno megaly. No rebound tenderness. No CVA tenderness. Donaldson sign is negative RELAY RECORD CLERK: Awake alert oriented x3. Cranial nerves II through XII 12 grossly intact. Motor, sensory intact. DTR 2+ upper lower extremity: Symmetric Skin:Dry. No rash. Psychiatric: Normal mood and affect Exam: General: Well-developed, morbidly obese white male with BMI 47 in no distress. HEENT: Atraumatic, normocephalic.PERRLA, dry mucous membrane. Anicteric sclera Chest: No point tenderness.No point tenderness. Lungs: Clear to auscultation bilaterally. No rhonchi rales or crackles. No wheezing. No use of accessory muscle respiration. Cardiovascular: Regular rate and rhythm. S1 + S2, no murmur gallop rub. No JVD Extremities: 2+ bilateral lower extremity edema with chronic skin changes. No wound or ulcer. GI: Abdomen obese, soft, nontender, positive bowel sounds. No hepatosplenomegaly. No rebound tenderness. No CVA tenderness. Donaldson sign is negative RELAY RECORD CLERK: Awake alert oriented x3. Cranial nerves II through XII 12 grossly intact. Motor, sensory intact. DTR 2+ upper lower extremity: Symmetric Skin:Dry. No rash. Psychiatric: Normal mood and affect OBJ DATA Labs CBC & Chem 7: 09/19/22 05:38 09/19/22 05:38 Labs: Abnormal Lab Results 09/19/22 09/19/22 09/18/22 05:38 05:38 05:47 WBC 3.3 L RBC 3.91 L Hgb 11.1 L Hct 35.3 L POC Hct RDW 16.1 H Immature Gran % (Auto) Wetzel % (Auto) Wetzel # (Auto) Monocytes % (Manual) 15 H Nucleated RBCs Platelet Estimate RBC Morphology Abnormal A Anisocytosis 1+ A POC VBG pH POC VBG pCO2 at Temp POC VBG pO2 POC VBG HCO3 POC VBG Total CO2 POC Venous O2 Sat POC VBG Base Excess VBG Lactic Acid POC Sodium Carbon Dioxide 20 L 20 L POC Total CO2 POC BUN BUN 31 H 43 H Creatinine 1.7 H POC Creatinine Glucose 189 H 138 H POC Glucose Hemoglobin A1c Calcium 8.2 L POC WB Ioniz Calcium AST 85 H Alkaline Phosphatase 140 H C-Reactive Protein 10.30 H NT-Pro-B Natriuret Pep Albumin 3.0 L Procalcitonin Urine Protein Urine Occult Blood 09/18/22 09/17/22 09/17/22 05:46 17:05 04:05 WBC RBC 3.83 L Hgb 11.0 L Hct 34.9 L POC Hct RDW 16.4 H Immature Gran % (Auto) Wetzel % (Auto) Wetzel # (Auto) Monocytes % (Manual) Nucleated RBCs 2 H Platelet Estimate Decreased A RBC Morphology Abnormal A Anisocytosis 1+ A POC VBG pH 7.28 L POC VBG pCO2 at Temp POC VBG pO2 POC VBG HCO3 20.9 L POC VBG Total CO2 22.0 L POC Venous O2 Sat POC VBG Base Excess -6.0 L VBG Lactic Acid 2.8 H POC Sodium Carbon Dioxide POC Total CO2 POC BUN BUN Creatinine POC Creatinine Glucose POC Glucose Hemoglobin A1c Calcium POC WB Ioniz Calcium AST Alkaline Phosphatase C-Reactive Protein NT-Pro-B Natriuret Pep Albumin Procalcitonin Urine Protein Trace A Urine Occult Blood Small A 09/17/22 09/17/22 09/17/22 04:00 01:02 00:45 WBC RBC Hgb Hct POC Hct 36.0 L RDW Immature Gran % (Auto) Wetzel % (Auto) Wetzel # (Auto) Monocytes % (Manual) Nucleated RBCs Platelet Estimate RBC Morphology Anisocytosis POC VBG pH POC VBG pCO2 at Temp 36.5 L POC VBG pO2 72 H POC VBG HCO3 19.9 L POC VBG Total CO2 21.0 L POC Venous O2 Sat 93.0 H POC VBG Base Excess -6.0 L VBG Lactic Acid 3.4 H POC Sodium 131 L Carbon Dioxide POC Total CO2 21.0 L POC BUN 41 H BUN Creatinine POC Creatinine 3.7 H Glucose POC Glucose 46 L Hemoglobin A1c Calcium POC WB Ioniz Calcium 1.01 L AST Alkaline Phosphatase C-Reactive Protein NT-Pro-B Natriuret Pep Albumin Procalcitonin 1.64 H Urine Protein Urine Occult Blood 09/17/22 09/17/22 09/17/22 00:39 00:39 00:39 WBC RBC 3.95 L Hgb 11.4 L Hct 35.3 L POC Hct RDW 16.3 H Immature Gran % (Auto) 0.6 H Wetzel % (Auto) 18.6 H Wetzel # (Auto) 1.65 H Monocytes % (Manual) Nucleated RBCs Platelet Estimate RBC Morphology Anisocytosis POC VBG pH POC VBG pCO2 at Temp POC VBG pO2 POC VBG HCO3 POC VBG Total CO2 POC Venous O2 Sat POC VBG Base Excess VBG Lactic Acid POC Sodium Carbon Dioxide POC Total CO2 POC BUN BUN Creatinine POC Creatinine Glucose POC Glucose Hemoglobin A1c 6.3 H Calcium POC WB Ioniz Calcium AST 89 H Alkaline Phosphatase 150 H C-Reactive Protein NT-Pro-B Natriuret Pep 1518.0 H Albumin 3.1 L Procalcitonin Urine Protein Urine Occult Blood Meds: Medications Acetaminophen (Acetaminophen 325 Mg Tablet) 650 mg PO Q4-6HP PRN; Protocol PRN Reason: Per Pain Protocol/Fever > 101 Hydrocodone Bitart/Acetaminophen (Hydrocodone/Apap 7.5/325mg Tablet) 1 tab PO TIDP PRN PRN Reason: Pain Dexamethasone (Dexamethasone 10 Mg/Ml Vial) 6 mg IV DAILY [facility] Last Admin: 09/19/22 08:38 Dose: 6 mg Dextrose (Dextrose 50% 50 Ml Vial) 0 ml IV UD PRN PRN Reason: Per Sliding Scale Diagnostic Test (Pha) (Accu-Chek 1 Each Strip) 1 each FS ACHS RON[facility] Duloxetine HCl (Duloxetine 30 Mg Capsule) 120 mg PO DAILY [facility] Last Admin: 09/19/22 08:37 Dose: 120 mg Enoxaparin Sodium (Enoxaparin 40 Mg/0.4 Ml Syringe) 40 mg SQ BID [facility]ON[facility] Last Admin: 09/19/22 08:37 Dose: 40 mg Glipizide (Glipizide 5 Mg Tab.Xl.24h) 10 mg PO BIDAC RONDA Last Admin: 09/19/22 10:33 Dose: 10 mg Glucose (Dextrose 31 Gm Oral.Susp) 15 gm PO PRN PRN PRN Reason: Hypoglycemia Guaifenesin (Guaifenesin/Dextromethorphan Oral Soheila) 10 ml PO Q4HP PRN PRN Reason: Cough Last Admin: 09/19/22 08:33 Dose: 10 ml Norepinephrine Bitartrate 8 mg (/ Sodium Chloride) 250 mls @ 18.75 mls/hr IV Q14H [facility]; Protocol Last Titration: 09/19/22 10:34 Dose: Infused Sodium Chloride (Sodium Chloride 0.9%) 250 mls @ 20 mls/hr IV .[id number] [facility] Last Admin: 09/19/22 05:04 Dose: Not Given REMDESIVIR 100 mg/ Sodium (Chloride) 250 mls @ 500 mls/hr IV Q24H [facility] Stop: 09/21/22 09:29 Last Infusion: 09/19/22 10:13 Dose: Infused Dextrose (Dextrose 10%-Water Iv Solution) 1,000 mls @ 30 mls/hr IV .Q24H [facility] Last Infusion: 09/19/22 08:15 Dose: 0 mls/hr Insulin Human Lispro (Insulin Lispro 1 Unit/0.01 Ml Unit) 0 unit SQ [facility]; Protocol Last Admin: 09/19/22 10:14 Dose: Not Given Levofloxacin (Levofloxacin 750 Mg Tablet) 750 mg PO DAILY [facility] Last Admin: 09/19/22 08:37 Dose: 750 mg Metoprolol Succinate (Metoprolol Succinate 50 Mg Tab.Xl.24h) 50 mg PO DAILY [facility] Last Admin: 09/19/22 08:37 Dose: 50 mg Omeprazole (Omeprazole 20 Mg Capsule) 40 mg PO ACB [facility] Last Admin: 09/19/22 07:58 Dose: 40 mg Ondansetron HCl (Ondansetron 4 Mg/2 Ml Vial) 4 mg IV Q4-6HP PRN; Protocol PRN Reason: Nausea And Vomiting Ondansetron HCl (Ondansetron 4 Mg Odt Tablet) 4 mg SL Q6HP PRN PRN Reason: Nausea And Vomiting Senna (Sennosides 1 Tablet) 2 tab PO HSP PRN PRN Reason: Constipation Sodium Chloride (0.9 % Sodium Chloride 10 Ml Syringe) 10 ml IV Q8 [facility] Last Admin: 09/19/22 05:41 Dose: 10 ml Impressions Impression: Chest x-ray:IMPRESSION: Moderate left and small patchy right basilar infiltrate Mild CHF Interpreted and Authenticated by: James Allen 09/17/22 A/P Sepsis Sepsis Identified: Yes Time Zero: 0015 Narrative A/P Narrative: 52 years old male with DM II, HTN, neuropathy and morbid obesity with BMI 47, vaccinated with 2 doses of COVID 19-vaccine (no booster) presented to emergency room with complaint of shortness of breath cough for 2 weeks: #Septic shock due to community-acquired pneumonia/COVID-19 infection. Resolved #Acute hypoxic respiratory failure due to CAP/COVID-19 infection. On 2 L oxygen now #Community-acquired pneumonia - Off Levophed. Dced IVF. -Change levofloxacin to p.o. Treat total of 7 days (cephalosporin allergy) -Lactic acid trended 1.7. Blood Cx NgTD. Sputum gram stain and culture Negative. # COVID-19 pneumonia -Vaccinated with 2 doses and no booster of vaccine -Cont Dexamethasone 6 mg IV daily. Cont Remdesivir. Dc Dexa in 1-2 days. - CRP 10.3, Follow CMP and CBC -COVID-19 isolation #Persistent hypoglycemia due to insulin. Resolved. - Cont to hold all insulin and oral hypoglycemic agent - Off D10W now. Cont SSI. Can resume Insulin at lower dose soon. #Acute kidney injury with creatinine 3.7. Nonoliguric. Resolved. -Baseline creatinine 1.0-month ago - Most likely ATN as a result of septic shock -UA unremarkable. # Hx of CHF. Last Echo 01/2019 with Normal Echo and High EF - BNP 1518. Seems compensated at this time. Compensated if Low EF. - Since last Echo was 01/2019, pending echo # DM II with hypoglycemia. Please see above #HTN: - BP stable now. Resume home Lisinopril and then Lasix. #Neuropathy/ Lower extremity diabetic mononeuropathy - S/p spinal cord stimulator with an excellent response to his lower extremity pain. # Hypokalemia. Replaced and follow BMP. #Morbid obesity with BMI 47 -Patient needs weight reduction program as outpatient. DVT PPX: Lovenox 40 mg bid. Code Status : Full code Disposition: Inpatient. Downgrade to PCU/Med surg. Plan of care discussed with patient and and his Zachary and ICU staff. Time Spent With Patient Time: Total time spent is greater than 50% in coordination of care (as documented) at patient's floor/unit and/or counseling patient: Total time spent with greater than 50% in coordination of care (as documented) at patient's floor/unit and/or counseling patient:: 35 - 50 minutes Critical Care Time: No
[2022-09-19] MEDS: FUROSEMIDE 40 MG TABLET PO SCH (11:10)
[2022-09-19] MEDS: POTASSIUM CHLORIDE 20 MEQ TABLET PO SCH (11:11)
[2022-09-19] MEDS: NOREPINEPHRINE BITARTRATE 8 MG in 0.9 % SODIUM CHLORIDE 242 ML IV SCH (12:23)
[2022-09-20] MEDS: NOREPINEPHRINE BITARTRATE 8 MG in 0.9 % SODIUM CHLORIDE 242 ML IV SCH ×2 (01:46→14:56)
[2022-09-20] MEDS: 0.9 % SODIUM CHLORIDE 10 ML SYRINGE IV SCH ×3 (05:22→20:58)
[2022-09-20] MEDS: 0.9 % SODIUM CHLORIDE 250 ML IV SCH ×2 (05:22→17:59)
[2022-09-20 06:51] LABS: Hematocrit 36.9 % (40.1-51.0); Hemoglobin 11.5 g/dL (13.7-17.5); Mean Cell Volume 90.4 fL (80.0-100.0); Mean Corpuscular HGB Conc 31.2 g/dL (31.0-36.0); Mean Platelet Volume 9.9 fL (8.8-12.5); Platelet Count 287 K/mcL (140-440); RBC 4.08 M/mcL (4.63-6.08); Red Cell Distribution Width 15.5 % (11.5-14.5); WBC 4.7 K/mcL (4.5-11.0)
[2022-09-20] MEDS: OMEPRAZOLE 20 MG CAPSULE PO SCH (07:02)
[2022-09-20 07:10] LABS: Blood Urea Nitrogen 33 mg/dL (6-20); Calcium 9.3 mg/dL (8.6-10.4); Carbon Dioxide 23 mmol/L (22-30); Chloride 104 mmol/L (96-108); Glomerular Filtration Rate 68; Glucose 116 mg/dL (70-105)
[2022-09-20] MEDS: INSULIN LISPRO 1 UNIT/0.01 ML UNIT SQ SCH ×4 (07:16→21:03)
[2022-09-20] MEDS: DEXAMETHASONE 10 MG/ML VIAL IV SCH (08:33)
[2022-09-20] MEDS: ENOXAPARIN 40 MG/0.4 ML SYRINGE SQ SCH ×2 (08:33→20:58)
[2022-09-20] MEDS: DULoxetine 30 MG CAPSULE PO SCH (08:33)
[2022-09-20] MEDS: POTASSIUM CHLORIDE 20 MEQ TABLET PO SCH (08:34)
[2022-09-20] MEDS: FUROSEMIDE 40 MG TABLET PO SCH (08:34)
[2022-09-20] MEDS: METOPROLOL SUCCINATE 50 MG TAB.XL.24H PO SCH (08:34)
[2022-09-20] MEDS: LEVOFLOXACIN 750 MG TABLET PO SCH (08:34)
--- NOTE | 2022-09-20 10:33 | Internal Med Progress Note ---
SUBJECTIVE Subjective Patient information: Note initiated : 09/20/22 at 10:28 am Principal diagnosis: Acute hypoxic respiratory failure Interval history: Patient is feeling well. He is off oxygen during the day but at night he needs 2 L oxygen. He also needs 2 L with ambulation. Patient denies chest pain shortness of breath nausea vomiting, fever, chills. He seems comfortable. Blood sugars are around 200. He is not taking any medication except sliding scale insulin Pertinent ROS: Except as documented all systems reviewed and negative Constitutional Vitals: Vital Signs Temp Pulse Resp BP Pulse Ox O2 Del Method O2 Flow Rate 97.9 F 87 15 174/99 90 1 09/20/22 07:50 09/20/22 07:50 09/20/22 07:50 09/20/22 07:50 09/20/22 07:50 09/20/22 07:50 09/20/22 07:50 Period Temp Pulse Resp BP Sys/Jackson Pulse Ox O2 Del Method O2 Flow Rate Last 24 Hr 97.6 F-98.2 F 78-96 - 148-174/75-131 88-97 Nasal Cannula-Nasal Cannula 1-2 Intake and Output 09/19/22 09/20/22 09/20/22 19:59 03:59 11:59 Intake Total 360 360 360 Output Total 1000 1560 1260 Balance -640 -1200 -900 Weight 151.817 kg Intake & Output: Intake & Output 09/19/22 09/20/22 09/20/22 19:59 03:59 11:59 Intake Total 360 360 360 Output Total 1000 1560 1260 Balance -640 -1200 -900 Weight 151.817 kg Intake: Oral 360 360 360 Output: Urine Catheter Amount 1000 1560 1260 Other: Urine Appearance Clear Clear Clear Uretheral (Brower) Clear Urine Color Pale Bright Yellow Bright Yellow Uretheral (Brower) Bright Yellow Stool Size Small Stool Color Brown Stool Consistency Soft Loose # Bowel Movements 1 Exam: General: Well-developed, morbidly obese white male with BMI 47 in no distress. HEENT: Atraumatic, normocephalic.PERRLA, dry mucous membrane. Anicteric sclera Chest: No point tenderness.No point tenderness. Lungs: Clear to auscultation bilaterally. No rhonchi rales or crackles. No wheezing. No use of accessory muscle respiration. Cardiovascular: Regular rate and rhythm. S1 + S2, no murmur gallop rub. No JVD Extremities: 2+ bilateral lower extremity edema with chronic skin changes. No w ound or ulcer. GI: Abdomen obese, soft, nontender, positive bowel sounds. No hepatosplenomegaly. No rebound tenderness. No CVA tenderness. Donaldson sign is negative [employer] OFFICER: Awake alert oriented x3. Cranial nerves II through XII 12 grossly intact. Motor, sensory intact. DTR 2+ upper lower extremity: Symmetric Skin:Dry. No rash. Psychiatric: Normal mood and affect OBJ DATA Labs CBC & Chem 7: 09/20/22 05:15 09/20/22 05:14 Labs: Abnormal Lab Results 09/20/22 09/20/22 09/19/22 05:15 05:14 05:38 WBC RBC 4.08 L Hgb 11.5 L Hct 36.9 L RDW 15.5 H Monocytes % (Manual) Nucleated RBCs Platelet Estimate RBC Morphology Anisocytosis Carbon Dioxide 20 L BUN 33 H 31 H Creatinine Glucose 116 H 189 H Hemoglobin A1c Calcium AST Alkaline Phosphatase C-Reactive Protein Albumin Urine Protein Urine Occult Blood 09/19/22 09/18/22 09/18/22 05:38 05:47 05:46 WBC 3.3 L RBC 3.91 L 3.83 L Hgb 11.1 L 11.0 L Hct 35.3 L 34.9 L RDW 16.1 H 16.4 H Monocytes % (Manual) 15 H Nucleated RBCs 2 H Platelet Estimate Decreased A RBC Morphology Abnormal A Abnormal A Anisocytosis 1+ A 1+ A Carbon Dioxide 20 L BUN 43 H Creatinine 1.7 H Glucose 138 H Hemoglobin A1c Calcium 8.2 L AST 85 H Alkaline Phosphatase 140 H C-Reactive Protein 10.30 H Albumin 3.0 L Urine Protein Urine Occult Blood 09/17/22 09/17/22 17:05 00:39 WBC RBC Hgb Hct RDW Monocytes % (Manual) Nucleated RBCs Platelet Estimate RBC Morphology Anisocytosis Carbon Dioxide BUN Creatinine Glucose Hemoglobin A1c 6.3 H Calcium AST Alkaline Phosphatase C-Reactive Protein Albumin Urine Protein Trace A Urine Occult Blood Small A Meds: Medications Acetaminophen (Acetaminophen 325 Mg Tablet) 650 mg PO Q4-6HP PRN; Protocol PRN Reason: Per Pain Protocol/Fever > 101 Hydrocodone Bitart/Acetaminophen (Hydrocodone/Apap 7.5/325mg Tablet) 1 tab PO TIDP PRN PRN Reason: Pain Allopurinol (Allopurinol 100 Mg Tablet) 100 mg PO DAILY [facility] Dextrose (Dextrose 50% 50 Ml Vial) 0 ml IV UD PRN PRN Reason: Per Sliding Scale Diagnostic Test (Pha) (Accu-Chek 1 Each Strip) 1 each FS ACHS [facility] Last Admin: 09/20/22 07:03 Dose: 1 each Duloxetine HCl (Duloxetine 30 Mg Capsule) 120 mg PO DAILY [facility] Last Admin: 09/20/22 08:33 Dose: 120 mg Enoxaparin Sodium (Enoxaparin 40 Mg/0.4 Ml Syringe) 40 mg SQ BID [facility] Last Admin: 09/20/22 08:33 Dose: 40 mg Furosemide (Furosemide 40 Mg Tablet) 40 mg PO DAILY [facility] Last Admin: 09/20/22 08:34 Dose: 40 mg Glucose (Dextrose 31 Gm Oral.Susp) 15 gm PO PRN PRN PRN Reason: Hypoglycemia Guaifenesin (Guaifenesin/Dextromethorphan Oral Soheila) 10 ml PO Q4HP PRN PRN Reason: Cough Last Admin: 09/19/22 08:33 Dose: 10 ml Norepinephrine Bitartrate 8 mg (/ Sodium Chloride) 250 mls @ 18.75 mls/hr IV Q14H [facility]; Protocol Last Admin: 09/20/22 01:46 Dose: Not Given Sodium Chloride (Sodium Chloride 0.9%) 250 mls @ 20 mls/hr IV .[id number] [facility] Last Admin: 09/20/22 05:22 Dose: Not Given REMDESIVIR 100 mg/ Sodium (Chloride) 250 mls @ 500 mls/hr IV Q24H [facility] Stop: 09/21/22 09:29 Last Infusion: 09/19/22 10:13 Dose: Infused Insulin Glargine (Insulin Glargine, Human 1 Unit/0.01 Ml) 7 unit SQ DAILY [facility] Insulin Human Lispro (Insulin Lispro 1 Unit/0.01 Ml Unit) [address] [facility]; Protocol Last Admin: 09/20/22 07:16 Dose: Not Given Levofloxacin (Levofloxacin 750 Mg Tablet) 750 mg PO DAILY [facility] Last Admin: 09/20/22 08:34 Dose: 750 mg Lisinopril (Lisinopril 10 Mg Tablet) 10 mg PO DAILY [facility] Metoprolol Succinate (Metoprolol Succinate 50 Mg Tab.Xl.24h) 50 mg PO DAILY [facility] Last Admin: 09/20/22 08:34 Dose: 50 mg Omeprazole (Omeprazole 20 Mg Capsule) 40 mg PO ACB [facility] Last Admin: 09/20/22 07:02 Dose: 40 mg Ondansetron HCl (Ondansetron 4 Mg/2 Ml Vial) 4 mg IV Q4-6HP PRN; Protocol PRN Reason: Nausea And Vomiting Ondansetron HCl (Ondansetron 4 Mg Odt Tablet) 4 mg SL Q6HP PRN PRN Reason: Nausea And Vomiting Potassium Chloride (Potassium Chloride 20 Meq Tablet) 20 meq PO QAMCC [facility] Last Admin: 09/20/22 08:34 Dose: 20 meq Senna (Sennosides 1 Tablet) 2 tab PO HSP PRN PRN Reason: Constipation Sodium Chloride (0.9 % Sodium Chloride 10 Ml Syringe) 10 ml IV Q8 [facility] Last Admin: 09/20/22 05:22 Dose: 10 ml A/P Sepsis Sepsis Identified: No Narrative A/P Narrative: 52 years old male with DM II, HTN, neuropathy and morbid obesity with BMI 47, vaccinated with 2 doses of COVID 19-vaccine (no booster) presented to emergency room with complaint of shortness of breath cough for 2 weeks: #Septic shock due to community-acquired pneumonia/COVID-19 infection. Resolved #Acute hypoxic respiratory failure due to CAP/COVID-19 infection. Now on 2 L oxygen at night and with exertion #Community-acquired pneumonia - Off Levophed. Dced IVF. -Change levofloxacin to p.o. Treat total of 7 days (cephalosporin allergy) through 09/23/2022 -Lactic acid trended 1.7. Blood Cx NgTD. Sputum gram stain and culture Negative. -Patient need home oxygen with exertion and during the night to liter # COVID-19 pneumonia -Vaccinated with 2 doses and no booster of vaccine -Stop dexamethasone 6 mg IV daily. Cont Remdesivir. - CRP 10.3, Follow CMP and CBC -COVID-19 isolation #Persistent hypoglycemia due to insulin. Resolved. - Off D10W now. Cont SSI. Can resume Insulin at lower dose soon. -On high-dose of insulin, glipizide, NPH, Ozempic at home -Start Lantus 7 units daily and monitor blood sugar closely #Acute kidney injury with creatinine 3.7. Nonoliguric. Resolved. -Baseline creatinine 1.0-month ago - Most likely ATN as a result of septic shock -UA unremarkable. # Hx of CHF. Last Echo 01/2019 with Normal Echo and High EF - BNP 1518. Seems compensated at this time. Compensated if Low EF. - Since last Echo was 01/2019, pending echo # DM II with hypoglycemia. Please see above #HTN: -Continue home lisinopril, Lasix, metoprolol #Neuropathy/ Lower extremity diabetic mononeuropathy - S/p spinal cord stimulator with an excellent response to his lower extremity pain. # Hypokalemia. Replaced and follow BMP. # Gout with no acute arthropathy -Resume home allopurinol. We do not have probenecid #Morbid obesity with BMI 47 -Patient needs weight reduction program as outpatient. DVT PPX: Lovenox 40 mg bid. Code Status : Full code Disposition: Inpatient. Disposition: Can be discharged home tomorrow if blood sugars are stable. Patient needs home oxygen which I already ordered. Plan of care discussed with patient and and his Zachary nursing staff Time Spent With Patient Time: Total time spent is greater than 50% in coordination of care (as documented) at patient's floor/unit and/or counseling patient: Total time spent with greater than 50% in coordination of care (as documented) at patient's floor/unit and/or counseling patient:: 25 - 35 minutes Critical Care Time: No
[2022-09-20] MEDS: REMDESIVIR 100 MG in 0.9 % SODIUM CHLORIDE 250 ML IV SCH (10:50)
[2022-09-20] MEDS: LISINOPRIL 10 MG TABLET PO SCH (11:11)
[2022-09-20] MEDS: INSULIN GLARGINE, HUMAN 1 UNIT/0.01 ML SQ SCH (11:11)
[2022-09-20 11:40] LABS: Anisocytosis 1+ (None Seen); Band Neutrophils % 7 % (0-10); Lymphocytes % 34 % (15-49); Monocytes % (Manual) 10 % (1-12); Platelet Estimate NORMAL (Normal); RBC Morphology ABNORMAL (Normal); Reactive Lymphocytes 1 % (0-2); Segmented Neutrophils % 48 % (38-78)
[2022-09-21] MEDS: NOREPINEPHRINE BITARTRATE 8 MG in 0.9 % SODIUM CHLORIDE 242 ML IV SCH (05:36)
[2022-09-21] MEDS: 0.9 % SODIUM CHLORIDE 250 ML IV SCH (06:33)
[2022-09-21] MEDS: 0.9 % SODIUM CHLORIDE 10 ML SYRINGE IV SCH (06:33)
[2022-09-21] MEDS ORDERED: NOREPINEPHRINE BITARTRATE 8 MG in 0.9 % SODIUM CHLORIDE 242 ML IV PRN (07:00)
[2022-09-21] MEDS: INSULIN LISPRO 1 UNIT/0.01 ML UNIT SQ SCH (07:31)
[2022-09-21] MEDS: OMEPRAZOLE 20 MG CAPSULE PO SCH (07:31)
[2022-09-21] MEDS: POTASSIUM CHLORIDE 20 MEQ TABLET PO SCH (07:32)
[2022-09-21] MEDS: DULoxetine 30 MG CAPSULE PO SCH (08:51)
[2022-09-21] MEDS: METOPROLOL SUCCINATE 50 MG TAB.XL.24H PO SCH (08:52)
[2022-09-21] MEDS: LEVOFLOXACIN 750 MG TABLET PO SCH (08:52)
[2022-09-21] MEDS: ENOXAPARIN 40 MG/0.4 ML SYRINGE SQ SCH (08:52)
[2022-09-21] MEDS: LISINOPRIL 10 MG TABLET PO SCH (08:52)
[2022-09-21] MEDS: INSULIN GLARGINE, HUMAN 1 UNIT/0.01 ML SQ SCH (08:52)
[2022-09-21] MEDS: FUROSEMIDE 40 MG TABLET PO SCH (08:52)
[2022-09-21] MEDS ORDERED: ALLOPURINOL 100 MG TABLET PO SCH (09:00)
[2022-09-21] MEDS: REMDESIVIR 100 MG in 0.9 % SODIUM CHLORIDE 250 ML IV SCH (09:19)
--- NOTE | 2022-09-21 09:22 | Discharge Summary ---
Discharge Provider Provider IMPORTANT FOLLOW-UP INFORMATION FOR PCP: Pt was hypoglycemic during the hospital stay. I have stopped the glipizide. I have asked pt to hold insulin for thd day of discharge, and monitor glucose, resume insulin if glucose levels are trending up and gradually titrate to home insulin dose. Patient information: Note initiated : 09/21/22 at 9:20 am Service Date, if different from initiated Date: [] Patient: Zachary Guerra 52 y/o M admitted on 09/17/22 for leg numbness, not feeling well x 1 month. Chief Complaint: [] Date of admission: 09/17/22 14:51 Discharge date: 09/21/22 Primary care physician: Mary Cruz Consults: 09/17/22 Consult to Physician [CONS] Stat Comment: Consulting Provider: Vickey Christie Reason For Exam: Physician to Consult COURSE Hospital Course Hospital course: From HPI History of present illness: Mr. Guerra is a 52 year old male with past medical history significant for diabetes mellitus, HTN, congestive heart failure unknown EF, morbid obesity with BMI 47 presented to emergency room with complaint of difficulty breathing cough with some sputum which progressively got worse for the past 2 weeks. Patient denies fever chills nausea vomiting. He has uncontrolled diabetes. Sometime he gave himself insulin without checking his blood sugar. Patient also complained of numbness bilateral lower extremity. He has generalized weakness and fatigue. Patient is vaccinated for COVID-19 virus with 2 vaccine. He did not receive his booster. He is vaccinated for influenza. In the emergency room patient found to be in septic shock with hypotension and elevated lactic acid. He was given IV fluid and started on Levophed as well as antibiotic. Patient was also persistently hypoglycemic and has to be started on D10W drip. Patient was admitted to the hospital for further management. #Septic shock due to community-acquired pneumonia/COVID-19 infection. Resolved at discahrge #Acute hypoxic respiratory failure due to CAP/COVID-19 infection. Now on 2 L oxygen at night and with exertion (will be going home with home o2) #Community-acquired pneumonia #Covid 19 pneumonia -plan for total of 7 days of abx -will be going on 2 more days of levoflox at discharge. #Persistent hypoglycemia due to insulin. Resolved. - Off D10W now the day prior to d/c glucose level stable, pt tolerating po well -d/c glipizide at discharge , continue ozempic, but hold insulin on the day of discharge, resume gradually based on glucose. #Acute kidney injury with creatinine 3.7. Nonoliguric. Resolved. -resolved, creat back to baseline at discharge. At the time of discharge, pt is doing well, progressing gradually to baseline, tolerating po well, and is able to verbalize the instructions for discharge. . Discharge diagnosis: septic shock Reason for admission: Shortness of breath Time Spent with Patient Time attestation: Total time spent providing and/or coordinating discharge services: Time spent: Greater than 30 minutes EXAM Constitutional Vitals: Temp Pulse Resp BP Pulse Ox O2 Del Method O2 Flow Rate 97.6 F 81 22 146/79 94 2 09/21/22 07:48 09/21/22 07:48 09/21/22 07:48 09/21/22 07:48 09/21/22 07:48 09/21/22 07:48 09/21/22 07:48 Exam: Constitutional; Afebrile, cooperative, alert, not in distress. Morbidly obese Eyes- No icterus, , No periorbital swelling Ears- Ext ear normal, hearing normal to conversation. Neck- Midline trachea, supple Respiratory system: Air Entry equal on both sides, No crackles or wheezing, no rhonchi. CVS- Rate rhythm regular, S1,S2 heard, no gallop, no rub. Abdomen- Soft nontender abdomen, no organomegaly, no tenderness, no guarding or rigidity, [employer]- AOOx3, moving all extremities, no gross focal deficit noted. Discharge Data Data Completed and Pending Labs on day of discharge: Labs from last 24 hours 09/20/22 05:15 Seg Neutrophils % 48 Band Neutrophils % 7 Lymphocytes % 34 Monocytes % (Manual) 10 Reactive Lymphocytes 1 Platelet Estimate Normal RBC Morphology Abnormal A Anisocytosis 1+ A Discharge Plan Patient/Caregiver Discharge Instructions Activity: resume usual activities as tolerated Diet: Consistent Carbohydrate Instructions: Using Oxygen at Home (GEN), Sepsis (GEN), Hypoxia (GEN), COVID-19 (Coronavirus Disease 2019)(GEN) Activity Restrictions/Additional Instructions: You are still contagious until after September 27. Please remain in isolation at home until then. Prescriptions: New levofloxacin 750 mg Tablet 750 mg PO DAILY 2 Days Qty: 2 0RF Continued furosemide [Lasix] 40 mg tablet 40 mg PO QAM lisinopril 10 mg tablet 20 mg PO QDAY hydrocodone-acetaminophen 7.5-325 mg tablet 1 tab PO TID PRN (Reason: Pain) probenecid 500 mg tablet 500 mg PO BID Qty: 60 2RF omeprazole 20 MG capsule 40 mg PO ACB metoprolol succinate 50 MG tablet extended release 24 hr 50 mg PO DAILY duloxetine 60 mg Capsule,Delayed Release(Dr/Ec) 120 mg PO DAILY Humulin 70/30 U-100 Insulin 100 unit/mL (70-30) Suspension 10 unit SUBCUT AC Label Comments: takes 30u novolog QAM and 15u novolog at dinner insulin degludec [Tresiba U-100 Insulin] 100 unit/mL Solution 60 unit SUBCUT QPM allopurinol 100 mg tablet 100 mg PO DAILY Label Comments: TAKE 1 TABLET BY MOUTH ONCE DAILY Ozempic 50 mg WEEKLY insulin degludec [Tresiba U-100 Insulin] 100 unit/mL Solution 40 unit SUBCUT DAILY ondansetron HCl 4 mg tablet 4 mg PO Q6H PRN (Reason: nausea and vomiting) Discontinued glipizide 10 MG tablet extended release 24hr 10 mg PO BID Follow Up Plan Follow up with: Mary Cruz ARNP [Primary Care Provider] - 09/29/22 9:45 am (Please check in at 9:30) Patient Disposition: Home, Self-Care Care Plan Goals: complete the course of antibiotic Follow up with your PCP in 1 week Hospital Course: see disch summary Health Concerns: Hypoglycemia -low glucose noted during hospital stay, plan to stop glipizide. Hold insulin today, monitor glucose, and slowly resume insulin back to baseline dosing based on blood glucose levels. Prognosis: Fair Rehab Potential: Fair I certify that the patient requires SNF services: No Overall status at discharge: patient is progressing back to baseline Discharge Orders: Discharge Order (Routine); Ordered 09/21/22 Ordered By: Vero Caro
== END 2022-09-21 12:05 | disposition home or self-care (01) | DRG 871 ==
LOC: ED 00:21 → ICU 14:51
PROVIDERS: ADMIT Internal Medicine; ATTEND Internal Medicine